=== PATIENT | female | born 1950 | race Caucasian/White ===

== ENCOUNTER 2016-10-28 21:41 | Emergency (ER) | payer MEDICARE | END 2016-10-28 21:58 | disposition left against medical advice (07) | LOC: ER1 21:41 | DX: Z53.21 Procedure and treatment not carried out due to patient leaving prior to being seen by health care provider (principal) ==

== ENCOUNTER 2020-10-24 18:24 | Inpatient (IN) | payer MEDICARE, OTHER ==
[~2020-10-24] VITALS: Ht 160 cm; Wt 62.1 kg
[2020-10-24 19:53] LABS: HEMOGLOBIN 10.5 gm/dl (12.3-15.3); RED BLOOD COUNT 3.59 M/UL (4.00-5.10); WHITE BLOOD COUNT 5.5 K/UL (4.5-11.0)
[2020-10-25 01:58] LABS: CORONAVIRUS HKU1 Not Detected (Not Detectd); CORONAVIRUS NL63 Not Detected (Not Detectd); CORONAVIRUS OC43 Not Detected (Not Detectd); CORONOAVIRUS 229E Not Detected (Not Detectd); HUMAN METAPNEUMOVIRUS Not Detected (Not Detectd); HUMAN RHINOVIRUS/ENTEROVIRUS Not Detected (Not Detectd); INFLUENZA A Not Detected (Not Detectd); INFLUENZA B Not Detected (Not Detectd)
[2020-10-25 01:59] LABS: BORDETELLA PARAPERTUSSIS Not Detected (Not Detectd); BORDETELLA PERTUSSIS Not Detected (Not Detectd); CHLAMYDIA PNEUMONIAE Not Detected (Not Detectd); MYCOPLASMA PNEUMONIAE Not Detected (Not Detectd); PARAINFLUENZA VIRUS 1 Not Detected (Not Detectd); PARAINFLUENZA VIRUS 2 Not Detected (Not Detectd); PARAINFLUENZA VIRUS 3 Not Detected (Not Detectd); PARAINFLUENZA VIRUS 4 Not Detected (Not Detectd); RESPIRATORY SYNCYTIAL VIRUS Not Detected (Not Detectd)
[2020-10-25 02:56] LABS: SARS-CoV-2 NOT DETECTED (Not Detectd)
[2020-10-25] MEDS ORDERED: OMEPRAZOLE20 MG PO (03:12)
[2020-10-25] MEDS ORDERED: ALPRAZOLAM2 MG PO (03:12)
[2020-10-25] MEDS ORDERED: NITRO-TIME6.5 MG PO (03:13)
[2020-10-25] MEDS ORDERED: GLUCOTROL5 MG PO (03:13)
[2020-10-25] MEDS ORDERED: PIOGLITAZONE HC30 MG PO (03:13)
[2020-10-25] MEDS ORDERED: LOVASTATIN40 MG PO (03:13)
[2020-10-25] MEDS ORDERED: VENLAFAXINE HC150 MG PO (03:16)
--- NOTE | 2020-10-25 03:57 | NUR ---
0350 CINDY ROWALND RN AND MAURICE DIXON RN DOUBLE VERIFIED AT BEDSIDE THAT PATIENT WANTED TO BE DNR/DNI. DR GARCIA MADE AWARE AND ORDERS GIVEN TO CHANGE IN SYSTEM TO DNR/DNI.
[2020-10-25 04:25] LABS: HEMOGLOBIN 11.1 gm/dl (12.3-15.3); RED BLOOD COUNT 3.84 M/UL (4.00-5.10); WHITE BLOOD COUNT 5.1 K/UL (4.5-11.0)
--- NOTE | 2020-10-25 14:37 | NUR ---
REPORT CALLED TO DAKSHA AT [facility].
[2020-10-26] MEDS ORDERED: IPRAT-ALBUT 0.5-3 ML NEB (08:48)
[2020-10-26] MEDS ORDERED: MEDROL DOSEPAK 24 MG PO (08:49)
[2020-10-26] MEDS ORDERED: INCRUSE ELLI62.5 MCG INH (09:00)
== END 2020-10-26 13:39 | disposition home or self-care (01) | DRG 189 ==
LOC: ER1 18:24 → M/S 10-25 00:48 → CDU 10-25 00:48 → M/S 10-25 01:56
PROVIDERS: Family Medicine; ADMIT Internal Medicine
DX: J96.21 Acute and chronic respiratory failure with hypoxia (principal); G47.33 Obstructive sleep apnea (adult) (pediatric); E11.65 Type 2 diabetes mellitus with hyperglycemia; J43.9 Emphysema, unspecified; Z20.822 Contact with and (suspected) exposure to COVID-19; F41.9 Anxiety disorder, unspecified; Z79.4 Long term (current) use of insulin; Z87.891 Personal history of nicotine dependence; Z91.041 Radiographic dye allergy status; Z90.710 Acquired absence of both cervix and uterus; Z88.1 Allergy status to other antibiotic agents; Z88.0 Allergy status to penicillin; Z84.1 Family history of disorders of kidney and ureter
CPT/HCPCS: 36415; 36600; 71045; 78580; 80048; 80053; 82550; 82553; 82803; 82962; 84484; 85025; 85379; 87633; 93005; 94640; 94664; 94760; 96374; 96375; 99285; A9540; J0360; J1650; J1956; J2920; J2930